=== PATIENT | male | born 1965 | race Caucasian/White ===

== ENCOUNTER 2016-09-09 02:23 | Emergency (ER) | payer OTHER ==
[2016-09-09 02:41] VITALS: BP 116/66
[2016-09-09] MEDS ORDERED: Cephalexin 500 MG Cap PO ONE (02:49)
--- NOTE | 2016-09-09 02:57 | EDM.PDOC ---
ED HPI GENERAL MEDICAL PROBLEM - General Chief Complaint: Wound Recheck Stated Complaint: CUT ON LEFT POINTER FINGER Time Seen by Provider: 09/09/16 02:45 - History of Present Illness INITIAL COMMENTS - FREE TEXT/NARRATIVE: cut left index finger with a knife on Wednesday. now he wants to have the wound checked. left index Pain Score (Numeric/FACES): 1 - Related Data Allergies Allergy/AdvReac Type Severity Reaction Status Date / Time peanut Allergy Other Verified 09/09/16 02:37 shelfish Allergy Other Uncoded 09/09/16 02:36 Home Meds: Home Meds . [No Known Home Meds] 03/24/15 [History] Past Medical History - Past Health History Medical/Surgical History: Denies Medical/Surgical History HEENT History: Reports: None Cardiovascular History: Reports: None Respiratory History: Reports: None Gastrointestinal History: Reports: None Genitourinary History: Reports: None Musculoskeletal History: Reports: None Neurological History: Reports: None Psychiatric History: Reports: None Endocrine/Metabolic History: Reports: None Hematologic History: Reports: None Immunologic History: Reports: None Dermatologic History: Reports: None - Infectious Disease History Infectious Disease History: Reports: None - Past Surgical History GI Surgical History: Reports: Hernia, Inguinal Social & Family History - Family History Family Medical History: Noncontributory - Tobacco Use Smoking Status *Q: Never Smoker Second Hand Smoke Exposure: No - Caffeine Use Caffeine Use: Reports: Coffee, Soda - Recreational Drug Use Recreational Drug Use: No ED ROS GENERAL - Review of Systems Review Of Systems: See Below Constitutional: Denies: Fever ED EXAM, SKIN/RASH Exam: See Below Text/Narrative:: left index finger ulnar aspect along nail vertical laceration with some slight opening of wound distally tissue appears viable. no bony injury suspected Course - Vital Signs Last Recorded V/S: Last Vital Signs Temp 97 F 09/09/16 02:38 Pulse 77 09/09/16 02:38 Resp 16 09/09/16 02:38 BP 116/66 09/09/16 02:38 Pulse Ox 98 09/09/16 02:38 - Orders/Labs/Meds Meds: Medications Discontinued Medications Generic Name Dose Route Start Last Admin Trade Name Freq PRN Reason Stop Dose Admin Cephalexin 500 mg 09/09/16 02:49 Keflex PO 09/09/16 02:50 ONETIME ONE Departure - Departure Time of Disposition: 02:56 Disposition: Home, Self-Care 01 Condition: good Clinical Impression: Laceration - Discharge Information Forms: ED Department Discharge Additional Instructions: keep wound clean with betadine soak followed by cleansing with clean water daily until healed
== END 2016-09-09 03:12 | disposition home or self-care (01) ==
LOC: MW.ED 02:23
DX: S61.211A Laceration without foreign body of left index finger without damage to nail, initial encounter (principal); W26.0XXA Contact with knife, initial encounter; Z91.010 Allergy to peanuts
CPT/HCPCS: 99282; A9270; 99283

== ENCOUNTER 2018-10-09 22:46 | Emergency (ER) | payer OTHER ==
[2018-10-09 22:53] VITALS: BP 118/69
--- NOTE | 2018-10-09 23:06 | EDM.PDOC ---
ED HPI GENERAL MEDICAL PROBLEM - General Chief Complaint: Upper Extremity Injury/Pain Stated Complaint: RIGHT THUMB INJURY, BLACKENED THUMBNAIL Time Seen by Provider: 10/09/18 23:04 Source of Information: Reports: Patient - History of Present Illness INITIAL COMMENTS - FREE TEXT/NARRATIVE: HISTORY AND PHYSICAL: History of present illness: [Patient slipped with a wrench earlier today jamming his right thumb as a subungual hematoma complains of pain no open lesion no fever nausea vomiting chills sweats pain is 5 out of 10 ] Review of systems: As per history of present illness and below otherwise all systems reviewed and negative. Past medical history: As per history of present illness and as reviewed below otherwise noncontributory. Surgical history: As per history of present illness and as reviewed below otherwise noncontributory. Social history: No reported history of drug or alcohol abuse. Family history: As per history of present illness and as reviewed below otherwise noncontributory. Physical exam: HEENT: Atraumatic, normocephalic, pupils reactive, negative for conjunctival pallor or scleral icterus, mucous membranes moist, throat clear, neck supple, nontender, trachea midline. Lungs: Clear to auscultation, breath sounds equal bilaterally, chest nontender. Heart: S1S2, regular, negative for clicks, rubs, or JVD. Abdomen: Soft, nondistended, nontender. Negative for masses or hepatosplenomegaly. Negative for costovertebral tenderness. Pelvis: Stable nontender. Genitourinary: Deferred. Rectal: Deferred. Extremities: Atraumatic, negative for cords or calf pain. Neurovascular unremarkable. Subungual hematoma noted right thumb Neuro: Awake, alert, oriented. Cranial nerves II through XII unremarkable. Cerebellum unremarkable. Motor and sensory unremarkable throughout. Exam nonfocal. Diagnostics: Right thumb 3 views ] Therapeutics: [Electrocautery-borehole in nail relieving subungual hematoma Impression: [Subungual hematoma right thumb] Definitive disposition and diagnosis as appropriate pending reevaluation and review of above. - Related Data Allergies Allergy/AdvReac Type Severity Reaction Status Date / Time peanut Allergy Other Verified 10/09/18 22:48 shelfish Allergy Other Uncoded 10/09/18 22:48 Home Meds: Home Meds . [No Known Home Meds] 03/24/15 [History] Past Medical History - Past Health History Medical/Surgical History: Denies Medical/Surgical History HEENT History: Reports: None Cardiovascular History: Reports: None Respiratory History: Reports: None Gastrointestinal History: Reports: None Genitourinary History: Reports: None Musculoskeletal History: Reports: None Neurological History: Reports: None Psychiatric History: Reports: None Endocrine/Metabolic History: Reports: None Hematologic History: Reports: None Immunologic History: Reports: None Dermatologic History: Reports: None - Infectious Disease History Infectious Disease History: Reports: None - Past Surgical History GI Surgical History: Reports: Hernia, Inguinal Social & Family History - Family History Family Medical History: Noncontributory - Tobacco Use Smoking Status *Q: Never Smoker - Caffeine Use Caffeine Use: Reports: Coffee, Soda - Recreational Drug Use Recreational Drug Use: No Review of Systems - Review of Systems Review Of Systems: See Below ED EXAM, GENERAL - Physical Exam Exam: See Below Course - Vital Signs Last Recorded V/S: Last Vital Signs Temp 97.7 F 10/09/18 22:52 Pulse 77 10/09/18 22:52 Resp 20 10/09/18 22:52 BP 118/69 10/09/18 22:52 Pulse Ox 96 10/09/18 22:52 Departure - Departure Time of Disposition: 23:38 Disposition: Home, Self-Care 01 Condition: Good Clinical Impression: Subungual hematoma - Discharge Information Referrals: PCP,None [Primary Care Provider] - Forms: ED Department Discharge Additional Instructions: The following information is given to patients seen in the emergency department who are being discharged to home. This information is to outline your options for follow-up care. We provide all patients seen in our emergency department with a follow-up referral. The need for follow-up, as well as the timing and circumstances, are variable depending upon the specifics of your emergency department visit. If you don't have a primary care physician on staff, we will provide you with a referral. We always advise you to contact your personal physician following an emergency department visit to inform them of the circumstance of the visit and for follow-up with them and/or the need for any referrals to a consulting specialist. The emergency department will also refer you to a specialist when appropriate. This referral assures that you have the opportunity for follow-up care with a specialist. All of these measure are taken in an effort to provide you with optimal care, which includes your follow-up. Under all circumstances we always encourage you to contact your private physician who remains a resource for coordinating your care. When calling for follow-up care, please make the office aware that this follow-up is from your recent emergency room visit. If for any reason you are refused follow-up, please contact the [facility] emergency department at and asked to speak to the emergency department charge nurse.
--- NOTE | 2018-10-09 23:30 | CR ---
HISTORY: Right thumb pain. TECHNIQUE: Three views of the right thumb. COMPARISON: No prior. FINDINGS: No acute fracture or malalignment. No joint space narrowing. No erosions. No radiopaque foreign body or soft tissue gas. IMPRESSION: No fracture or malalignment. Dictated by Nitesh Jung MD @ 10/09/2018 11:28:12 PM Dictated by: Nitesh Jung MD @ 10/09/2018 23:28:15 (Electronically Signed)
== END 2018-10-09 23:57 | disposition home or self-care (01) ==
LOC: MW.ED 22:46
DX: S60.111A Contusion of right thumb with damage to nail, initial encounter (principal); Z91.010 Allergy to peanuts; Z91.013 Allergy to seafood; W27.8XXA Contact with other nonpowered hand tool, initial encounter
CPT/HCPCS: 11740; 73140-26-F5; 73140-F5; 99282; 99283-25